=== PATIENT | female | born 1930 | race American Indian/Alaskan Native ===

== ENCOUNTER 2016-11-05 07:20 | Day surgery (SDC) | payer MEDICARE, MEDICAID ==
[2016-10-29 09:19] VITALS: BMI 31.7
[2016-11-05] MEDS ORDERED: Iohexol 240 (50 ml) ONE (07:28)
[2016-11-05] MEDS ORDERED: Lactated Ringer's 500 ML IV ONE (09:09)
[2016-11-05] MEDS: cefTRIAXone IV 1 gm in Dextros 50 ML IVPB ONE ×2 (09:10→09:50)
[2016-11-05] MEDS ORDERED: Sodium Chloride 0.9% 1,000 ML IV ONE (09:35)
[2016-11-05] MEDS ORDERED: Midazolam 2 MG/2 ML VIAL ONE (09:48)
[2016-11-05] MEDS ORDERED: Lidocaine 2% Jelly (Uro-Jet) ONE (10:12)
[2016-11-05] MEDS ORDERED: Etomidate 20 mg/10ml Inj IV ONE (11:18)
[2016-11-05] MEDS ORDERED: HYDROmorphone 0.5 mg/0.5 ml ISec IVP PRN (11:19)
[2016-11-05] MEDS ORDERED: Sodium Chloride 0.9% 1,000 ML IV SCH (11:30)
--- NOTE | 2016-11-05 11:41 | PCM.SURG1 ---
Surgeon's Initial Post Op Note - Surgeon's Notes Surgeon: Adrien BEATTY Supervising Producer: NONE Type of Anesthesia: General LMA Pre-Operative Diagnosis: UROLITHIASIS Operative Findings: CYSTOCELE. UROLITHIASIS - R RENAL STONES Post-Operative Diagnosis: SAME, CYSTOCELE Operation Performed: CYSTOSCOPY. BILAT RTG PYELOGRAM. INSERTION OF R URETRAL STENT Specimen/Specimens Removed: URINE Estimated Blood Loss: EBL {In ML}: 0 Blood Products Given: N/A Post-Op Condition: Good Date of Surgery/Procedure: 11/05/16 Time of Surgery/Procedure: 11:15
[2016-11-05] MEDS ORDERED: Lactated Ringer's 1,000 ML IV ONE (12:00)
[2016-11-05 12:41] VITALS: BP 149/67; PULSE 72; RESP 18; TEMP 97; O2SAT 100
--- NOTE | 2016-11-05 15:20 | RAD ---
PROCEDURE: Intraoperative Fluoroscopy. HISTORY: Right renal calculi FINDINGS: Fluoroscopic assistance was provided . 177.5 seconds fluoroscopy time utilized during this procedure. Radiation dose = 4.53 mGy. Please
--- NOTE | 2016-11-05 19:52 | RAD ---
HISTORY: RT. RENAL CALCULI COMPARISON: No prior. FINDINGS: BOWEL: Normal. No obstruction. No free air. Prominent fecal loading is seen throughout the proximal half of the colon. Probable urolithiasis at the right upper quadrant. Surgical clips in the right upper quadrant abdomen as well. BONES: Advanced degenerative changes seen throughout the lumbar spine as well as moderate degenerate changes of this bilateral sacroiliac and hip joints. OTHER FINDINGS: None. IMPRESSION: Nonobstructive bowel gas pattern. Urolithiasis is suggested the right upper quadrant with surgical clips in right upper quadrant as well. Prominent fecal loading throughout the proximal half of the colon.
--- NOTE | 2016-11-08 10:07 | OP ---
PREOPERATIVE DIAGNOSES: 1. Right hydronephrosis. 2. Microhematuria. 3. Urolithiasis. POSTOPERATIVE DIAGNOSES: 1. Right hydronephrosis. 2. Microhematuria. 3. Urolithiasis. 4. Right renal calculi. PROCEDURES: 1. Cystoscopy. 2. Right retrograde pyelogram. 3. Insertion of right ureteral stent. 4. Left retrograde ureteral pyelogram. 5. Exam under anesthesia. [place] Department Supervisor fluoroscopy of the abdomen was obtained. There were noted to be multiple calcifications overlying the right renal shadow. In addition, there was a calcification on the left side, possibly within the left ureter in the course of the left lumbar ureter. SURGEON: Renetta Vázquez MD DESCRIPTION OF PROCEDURE: Perioperative antibiotics were administered. The patient was placed lithotomy position. Genitalia prepped and sterilely. Anesthesia was applied by the anesthesiologist. A 22-Botswanan cystoscope sheath was introduced with obturator. Urine was sent for bacteriologic examination. The urethra and bladder were inspected. There was mild cystitis. There was no bladder tumor. There was no bladder stone. The patient was noted to have a very large cystocele. Due to a large cystocele, the trigone and ureteral orifices could not be at first identified. The cystocele and pelvic prolapse were reduced. A laparotomy pad was inserted per vagina. The bladder was reinspected. The right ureteral orifice was ultimately able to be identified and catheterized, with the use of an open-ended catheter and a 0.235 inches sensor guidewire. The guidewire with open-ended catheter was inserted into the ureter. Iodinated contrast was instilled. There were noted to be multiple very lucent filling defects which stones in the right collecting system. These were located in the right lower pole as well as the right renal pelvis as well as the right ureteral pelvic junction. The guidewire was reinserted. The guidewire could not first be advanced past the stone due to the obstruction of the stone at the ureteropelvic junction. The guidewire in fact was deflected back distally. Subsequently, with the use of an angle-tip Glidewire was employed through the open-ended catheter. The guidewire was able to be advanced to the kidney. The open-ended catheter was then advanced to the kidney as well. The sensor guidewire was replaced through the open-ended catheter. A 6-Botswanan multi-length stent was inserted over the guidewire. Proper stent position was confirmed with fluoroscopy and endoscopy. The guidewire was removed. Stent was left in place. Attention was then turned to the left side in view of the finding of possible left ureteral stone. A 0.035-inch guidewire was inserted into the removed left ureteral orifice. Again, it was difficult to locate the left ureteral orifice. It was successfully identified and catheterized with an open-ended catheter over the guidewire with the aid of an open-ended catheter. The guidewire was inserted at the level of the kidney. The PA and oblique views demonstrated that the calcification over the lumbar ureter overlay the position of the stone on some views, but not all views. Iodinated contrast was instilled in the open ended catheter. The retrograde pyelogram demonstrated no evidence of filling defect or collection within the ureter. The calcification was outside the course of the ureter. There was no hydronephrosis. The bladder was reinspected with 70-degree lens and confirmed the above findings. The bladder was then drained. Cystoscope and sheath were removed. Exam under anesthesia was performed. There was noted to be a large grade 4 cystocele. The patient tolerated the procedure without complication. The patient was turned to supine position and transferred to recovery room in satisfactory condition. Renetta Vázquez MD cc: Renetta Vázquez MD
== END 2016-11-05 14:33 | disposition home or self-care (01) ==
LOC: C.SDS 07:20
PROVIDERS: ATTEND Urology
DX: N20.9 Urinary calculus, unspecified (principal); N13.30 Unspecified hydronephrosis
CPT/HCPCS: 52332; 52351; 74000; 87086; C1758; C1769; C2617; J0696; J7040; J7120; Q9966

== ENCOUNTER 2017-01-28 07:09 | Day surgery (SDC) | payer MEDICARE, MEDICAID ==
[2016-10-29 09:18] VITALS: BMI 31.7
[2017-01-28] MEDS ORDERED: Lactated Ringer's 1,000 ML IV ONE (09:31)
[2017-01-28] MEDS ORDERED: cefTRIAXone IV 1 gm in Dextros 50 ML IVPB ONE (09:51)
[2017-01-28] MEDS ORDERED: Lidocaine 2% Jelly (Uro-Jet) ONE (09:52)
[2017-01-28] MEDS ORDERED: Iohexol 240 (50 ml) ONE (09:52)
[2017-01-28] MEDS ORDERED: Propofol 10 mg/ml Inj (20 ML) ONE (09:53)
[2017-01-28] MEDS ORDERED: Lidocaine Hydrochloride 5 ML INJ ONE (09:55)
--- NOTE | 2017-01-28 10:25 | PCM.SURG1 ---
Surgeon's Initial Post Op Note - Surgeon's Notes Surgeon: Adrien Vázquez Client Evaluator: none Type of Anesthesia: IV Sedation Pre-Operative Diagnosis: R renal calculus Operative Findings: same, bladder calculi Post-Operative Diagnosis: same Operation Performed: cysto. removal of R ureteral strent. removal of bladder calculi Specimen/Specimens Removed: urine. stones Estimated Blood Loss: EBL {In ML}: 0 Blood Products Given: N/A Drains Used: No Drains Post-Op Condition: Good Date of Surgery/Procedure: 01/28/17 Time of Surgery/Procedure: 10:25
[2017-01-28] MEDS ORDERED: Lactated Ringer's 1,000 ML IV SCH (10:45)
[2017-01-28 12:17] VITALS: RESP 16
[2017-01-28 14:42] VITALS: BP 130/61; PULSE 75; TEMP 97.6; O2SAT 100
--- NOTE | 2017-01-30 17:20 | RAD ---
HISTORY: Right ureteral calculi COMPARISON: 01/05/2017 FINDINGS: BOWEL: Normal. No obstruction. No free air. BONES: Multilevel degenerative change. OTHER FINDINGS: Position of the double J stent catheter(s): Unchanged. Stable appearance of multiple upper tract calculi on the right the largest measuring 12 mm. Questionable calculus overlying the double-J stent at the level of the transverse process L4 vertebral body. IMPRESSION: No significant interval change compared to the prior examination(s).
--- NOTE | 2017-01-30 18:02 | OP ---
PROCEDURE DATE: 01/28/2017 UROLOGY OPERATIVE REPORT PREOPERATIVE DIAGNOSIS: Urolithiasis. POSTOPERATIVE DIAGNOSIS: Urolithiasis, right renal calculus. Bladder calculi. PROCEDURE: Cystoscopy. Removal of right ureteral stent. Removal bladder calculi. OPERATING SURGEON: Dr. Renetta Vázquez. DESCRIPTION OF PROCEDURE: Map Maker film of the abdomen was obtained. The right ureteral stent was noted to be in good position. There was noted to be a right lower pole calculus, approximately 1 cm in diameter. The stent was visualized. The course of the stent was viewed with magnification. There were no ureteral stones along the course of the stent. Patient was placed in lithotomy position. The genitalia prepped and sterilely. Perioperative antibiotics were administered. Sedation was administered by the anesthesiologist. A 22-Sinhala cystoscope sheath was introduced with obturator. Urine was sent for bacteriologic examination. The bladder was inspected. There was noted to be mild inflammation of bladder mucosa. There was no bladder tumor. There were noted to be multiple stone fragments within the bladder. The right ureteral stent was identified within the bladder as well. The stent was grasped with rigid grasping forceps and removed. Bladder was reinspected. The remaining stones within the bladder were grasped with rigid grasping forceps and removed. The bladder was drained. Cystoscope and sheath removed. Exam under anesthesia was performed. There was noted to be the presence of pelvic prolapse with marked bladder descensus. The patient tolerated the procedure without complication. The patient was returned to supine position and transferred to the recovery room in satisfactory condition. Renetta Vázquez MD
== END 2017-01-28 13:25 | disposition home or self-care (01) ==
LOC: C.SDS 07:09
PROVIDERS: ATTEND Urology
DX: N20.9 Urinary calculus, unspecified (principal); N20.2 Calculus of kidney with calculus of ureter; N21.0 Calculus in bladder
CPT/HCPCS: 52310; 52317; 74000; 82365; 87086; 88300; J0696; J7120

== ENCOUNTER 2018-02-28 10:35 | Outpatient (CLI) | payer OTHER | END 2018-02-28 10:36 | disposition home or self-care (01) | LOC: C.RADIC 10:35 ==

== ENCOUNTER 2018-05-22 17:47 | Emergency (ER) | payer OTHER ==
[2018-05-22 18:10] VITALS: BMI 31.4
[2018-05-22 18:39] VITALS: O2SAT 97
--- NOTE | 2018-05-22 19:19 | C.PDOC ---
History Of Present Illness Patient presents with 1 week of right arm pain. Patient states it hurts to move the arm, pain is better during the day. Denies weakness, swelling trauma, fever, chills, nausea, or vomiting. She has been taking tylenol with no relief. Patient also reports some neck pain with movement. Time Seen by Provider: 05/22/18 19:19 Chief Complaint (Nursing): Upper Extremity Problem/Injury History Per: Patient History/Exam Limitations: no limitations Onset/Duration Of Symptoms: Days (1 week) Current Symptoms Are (Timing): Still Present Quality: Dull Severity: Mild Pain Scale Rating Of: 3 Exacerbating Factor(s): Movement Recent travel outside of the [place]: No Additional History Per: Patient Past Medical History Reviewed: Historical Data, Nursing Documentation, Vital Signs Vital Signs: Last Vital Signs Temp 100.2 F H 05/22/18 18:13 Pulse 89 05/22/18 18:13 Resp 17 05/22/18 18:13 BP 148/77 05/22/18 18:13 Pulse Ox 97 05/22/18 18:13 - Medical History PMH: Arthritis, CAD, Gastritis, HTN, Kidney Stones, Osteoporosis, Pancreatitis, Peripheral Edema, Chronic Kidney Disease Denies: Fractures Surgical History: Cholecystectomy, Endoscopy (ERCP) - [facility] Procedures COLONOSCOPY (03/20/14) ENDOSCOP INSERTION OF STENT (TUBE) INTO BILE DUCT (08/31/14) ENDOSCOPIC REMOVAL OF STONE(S) FROM BILIARY TRACT (08/31/14) ENDOSCOPIC SPHINCTEROTOMY AND PAPILLOTOMY (08/31/14) ESOPHAGOGASTRODUODENOSCOPY [EGD] W/CLOSED BIOPSY (03/20/14) LAPAROSCOPIC CHOLECYSTECTOMY (08/31/14) Family History: States: No Known Family Hx - Social History Hx Tobacco Use: No Hx Alcohol Use: No Hx Substance Use: No - Immunization History Hx Tetanus Toxoid Vaccination: No Hx Influenza Vaccination: No Hx Pneumococcal Vaccination: No Review Of Systems Constitutional: Negative for: Fever, Chills Cardiovascular: Negative for: Chest Pain, Palpitations Respiratory: Negative for: Cough, Shortness of Breath Gastrointestinal: Negative for: Nausea, Vomiting Musculoskeletal: Positive for: Neck Pain, Arm Pain (Right) Neurological: Negative for: Weakness, Numbness Physical Exam - Physical Exam Appears: Non-toxic Skin: Warm, Dry Head: Normacephalic Oral Mucosa: Moist Neck: Trachea Midline, No Midline Cervical Tenderness, No Paracervical Tenderness, No Step Off Deformity, Supple, Other (Slightly kyphotic, no men ingism signs) Chest: Symmetrical, No Tenderness Cardiovascular: Rhythm Regular Respiratory: No Rales, No Rhonchi, No Wheezing Gastrointestinal/Abdominal: Soft, No Tenderness Extremity: Other (Arthritic changes to bilateral hands. Chronic vascular stasis skin changes to bilateral legs with trace pedal edema, unchanged as per patient.) Neurological/Psych: Oriented x3, Normal Speech, Normal Cognition Gait: Steady ED Course And Treatment O2 Sat by Pulse Oximetry: 97 (Room air) Pulse Ox Interpretation: Normal Progress Note: CT cervical spine and CT head ordered. Motrin administered. Reevaluation Time: 21:21 Reassessment Condition: Improved Disposition Counseled Patient/Family Regarding: Studies Performed, Diagnosis, Need For Followup, Rx Given - Disposition Referrals: Roxi Motta MD [Staff Provider] - Disposition: HOME/ ROUTINE Disposition Time: 19:19 Condition: FAIR Additional Instructions: Please return if symptoms recur Prescriptions: Ibuprofen [Motrin] 1 tab PO BID PRN #20 tab PRN Reason: Pain Instructions: Shoulder Pain (DC), Generalized Neck Pain (DC) Forms: [facility] (Nigerien) - Clinical Impression Clinical Impression: Arm pain, Neck pain on right side, Arthritic-like pain - Scribe Statement The provider has reviewed the documentation as recorded by the Scribramon Castelan All medical record entries made by the Scribe were at my direction and personally dictated by me. I have reviewed the chart and agree that the record accurately reflects my personal performance of the history, physical exam, medical decision making, and the department course for this patient. I have also personally directed, reviewed, and agree with the discharge instructions and disposition.
[2018-05-22 21:34] VITALS: BP 150/70; PULSE 84; RESP 14; TEMP 98.7
--- NOTE | 2018-05-23 08:42 | CT ---
Date of service: 05/22/2018 PROCEDURE: CT HEAD WITHOUT CONTRAST. HISTORY: headache COMPARISON: None available. TECHNIQUE: Axial computed tomography images were obtained through the head/brain without intravenous contrast. Radiation dose: Total exam DLP = 1032.74 mGy-cm. This CT exam was performed using one or more of the following dose reduction techniques: Automated exposure control, adjustment of the mA and/or kV according to patient size, and/or use of iterative reconstruction technique. FINDINGS: HEMORRHAGE: No intracranial hemorrhage. BRAIN: Scattered focal lucencies in the subcortical and periventricular white matter suggestive for chronic microvascular ischemic change. More confluent focal low attenuation seen within the posterior bilateral parietal occipital subcortical white matter, nonspecific. Punctate hypodensity in the left basal ganglia suggestive for a small lacunar infarct. VENTRICLES: Unremarkable. No hydrocephalus. CALVARIUM: Unremarkable. PARANASAL SINUSES: Unremarkable as visualized. No significant inflammatory changes. MASTOID AIR CELLS: Unremarkable as visualized. No inflammatory changes. OTHER FINDINGS: Atherosclerotic intracranial calcifications. IMPRESSION: Severe chronic microvascular ischemic change. More confluent low attenuation seen within the bilateral parietal occipital subcortical white matter. This may be related to the severe chronic microvascular ischemic change. Additional etiologies not entirely excluded. Clinical correlation. Correlation with MRI may be helpful for further evaluation if clinically indicated. Diffuse generalized parenchymal atrophy. If symptoms persists, consider correlation with MRI. A preliminary report was generated at 8:45 p.m. on 05/22/[address] Brandon Quiroz from [facility].
--- NOTE | 2018-05-23 11:00 | CT ---
Date of service: 05/22/2018 PROCEDURE: CT Cervical Spine without contrast HISTORY: Neck pain COMPARISON: None available. TECHNIQUE: Axial computed tomography images were obtained of the cervical spine without the use of intravenous contrast. Coronal and sagittal reformatted images were created and reviewed. Radiation dose: Total exam DLP = 396.05 mGy-cm. This CT exam was performed using one or more of the following dose reduction techniques: Automated exposure control, adjustment of the mA and/or kV according to patient size, and/or use of iterative reconstruction technique. FINDINGS: VERTEBRAE: No acute compression fractures no retropulsed fragments. Vertebral bodies exhibit relatively normal stature. There is slight anterior subluxation of C4 over C5 however vertebral bodies otherwise exhibit normal alignment. Facets normally aligned. DISCS/SPINAL CANAL/NEURAL FORAMINA: Multilevel degenerative spondylosis. At the C2-C3 level, there is adequate disc height. Small focal central and bilateral disc protrusion indents the ventral surface of the thecal sac and reaches and appears to minimally flatten the ventral surface of the cord. The facets are hypertrophic. Exit foramina appear adequate. At the C3-C4 level, there is disc space narrowing. Small central and bilateral disc protrusion also compresses the ventral surface of the thecal sac and spinal cord.. There is mild central canal narrowing. The facets are moderately hypertrophic. The uncovertebral joints are mildly overgrown. Left exit foramen is stenotic. Right exit foramen is marginal to adequate. At the C4-C5 level, there is disc space narrowing with slight uncovering of the posterior superior surface of the disc due to the aforementioned anterior subluxation. There is also accompanying broad-based protrusion of the posterior annulus resulting in moderate canal stenosis and cord compression.. Facet and uncovertebral joint arthropathy with bilateral foraminal stenosis. At the C5-C6 level, there is disc space narrowing with small central and bilateral disc protrusion that results in moderate canal stenosis and compression of the ventral surface of thecal sac and spinal cord. The uncovertebral facets are hypertrophic with bilateral foraminal stenosis. At the C6-C7 level, there is also disc space narrowing with small central and bilateral disc bulge that minimally flattens the ventral surface of the thecal sac. Uncovertebral facets are hypertrophic with marginal appearing exit foramina.. PARASPINAL SOFT TISSUES: Unremarkable. OTHER FINDINGS: Lung apices are clear. IMPRESSION: No acute fractures. Multilevel degenerative spondylosis of the cervical spine with varying degrees of mild to moderate canal stenosis and cord compression. There is also slight anterior subluxation of C4 over C5.
== END 2018-05-22 22:40 | disposition home or self-care (01) ==
LOC: C.ER 17:47
DX: M54.2 Cervicalgia (principal); I25.10 Atherosclerotic heart disease of native coronary artery without angina pectoris; I12.9 Hypertensive chronic kidney disease with stage 1 through stage 4 chronic kidney disease, or unspecified chronic kidney disease; N18.9 Chronic kidney disease, unspecified; M81.0 Age-related osteoporosis without current pathological fracture